=== PATIENT | female | born 1995 | race Caucasian/White ===

== ENCOUNTER → 2021-12-13 | Outpatient (CLI) | payer OTHER, SELFPAY ==
[2021-12-13 14:28] LABS: Progesterone Level 10.96 ng/mL (See Comment)
== END | disposition home or self-care (01) ==
LOC: WOBLAB 13:15
PROVIDERS: Visit Provider Student in an Organized Health Care Education/Training Program
DX: N97.8 Female infertility of other origin (principal)
CPT/HCPCS: 36415; 84144

== ENCOUNTER → 2022-01-13 | Outpatient (CLI) | payer OTHER, SELFPAY ==
[2022-01-13 13:52] LABS: Progesterone Level < 0.21 ng/mL (See Comment)
== END | disposition home or self-care (01) ==
LOC: WOBLAB 10:58
PROVIDERS: Visit Provider Student in an Organized Health Care Education/Training Program
DX: N97.8 Female infertility of other origin (principal)
CPT/HCPCS: 36415; 84144

== ENCOUNTER → 2022-02-17 | Outpatient (CLI) | payer OTHER, SELFPAY ==
[2022-02-17 11:20] LABS: Progesterone Level 13.94 ng/mL (See Comment)
== END | disposition home or self-care (01) ==
PROVIDERS: Visit Provider Student in an Organized Health Care Education/Training Program
DX: N97.8 Female infertility of other origin (principal)
CPT/HCPCS: 36415; 84144

== ENCOUNTER → 2022-03-26 | Outpatient (CLI) | payer OTHER, SELFPAY ==
[2022-03-26 15:25] LABS: Absolute Lymphocyte Count 1.39 X10^3/uL (0.83-4.51); Absolute Neutrophil Count 7.5 X10^3/uL (2.0-7.7); Basophil# 0.06 X10^3/uL; Basophil% 0.6 % (0-1); Eosinophil# 0.16 X10^3/uL; Eosinophils% 1.6 % (0-5); Hematocrit 39.2 % (37-47); Hemoglobin 13.4 g/dL (12.0-15.0); Lymphocyte # 1.39 X10^3/ul (0.83-4.51); Lymphocyte % 14.2 % (19-41); Mean Corp Hgb Conc 34.2 g/dL (32-36); Mean Corpuscular Hgb 29.3 pg (27.0-32.0); Mean Corpuscular Volume 85.8 fL (81-99); Mean Platelet Vol. 10.8 fl (6.2-12.0); Monocyte# 0.66 X10^3/uL; Monocyte% 6.7 % (0-10); NRBC Flagged by Analyzer 0 % (0-5); Neutrophil # 7.49 X10^3/uL (2.7-7.7); Neutrophil % 76.7 % (47-70); Platelet Count 327 K/mm3 (150-450); RBC Distribution Width CV 12.2 % (11.6-14.6); RBC Distribution Width SD 38.3 fl (35.1-43.9); Red Blood Count 4.57 M/mm3 (4.2-5.4); White Blood Count 9.8 K/mm3 (4.4-11.0)
[2022-03-26 16:29] LABS: HIV - WCH Non-Reactive (Nonreactive); Hepatitis B Surface Antigen Non-Reactive (Nonreactive); Hepatitis C Antibody Non-Reactive (Nonreactive); Rubella IgG Reactive (Nonreactive); Syphilis Antibodies Non-reactive
[2022-03-28 13:05] LABS: V-Zoster IgG (Immunity) 483 index (Immune >165)
== END | disposition home or self-care (01) ==
LOC: WOBLAB 14:07
PROVIDERS: Visit Provider Obstetrics & Gynecology
DX: Z34.81 Encounter for supervision of other normal pregnancy, first trimester (principal)
CPT/HCPCS: 36415; 85025; 86703; 86762; 86780; 86787; 86803; 87086; 87088; 87340

== ENCOUNTER → 2022-07-23 | Outpatient (CLI) | payer OTHER, SELFPAY ==
[2022-07-23 11:22] LABS: Hematocrit 36.1 % (37-47); Hemoglobin 12.3 g/dL (12.0-15.0); Mean Corp Hgb Conc 34.1 g/dL (32-36); Mean Corpuscular Hgb 29.8 pg (27.0-32.0); Mean Corpuscular Volume 87.4 fL (81-99); Mean Platelet Vol. 10.1 fl (6.2-12.0); Platelet Count 283 K/mm3 (150-450); RBC Distribution Width CV 13.1 % (11.6-14.6); RBC Distribution Width SD 41.1 fl (35.1-43.9); Red Blood Count 4.13 M/mm3 (4.2-5.4); White Blood Count 10.5 K/mm3 (4.4-11.0)
[2022-07-23 11:28] LABS: Glucose Challenge Gest 1H 50g 133 mg/dL (70-140)
[2022-07-23 11:50] LABS: Syphilis Antibodies Non-reactive
== END | disposition home or self-care (01) ==
LOC: WOBLAB 10:17
PROVIDERS: Visit Provider Nurse Practitioner Women's Health
DX: Z34.82 Encounter for supervision of other normal pregnancy, second trimester (principal)
CPT/HCPCS: 36415; 82950; 85027; 86780

== ENCOUNTER → 2022-10-08 | Outpatient (CLI) | payer OTHER, SELFPAY ==
[2022-10-08 11:10] LABS: Hematocrit 35.6 % (37-47); Hemoglobin 12.1 g/dL (12.0-15.0); Mean Corpuscular Hgb 28.5 pg (27.0-32.0); Mean Platelet Vol. 10.3 fl (6.2-12.0); Platelet Count 289 K/mm3 (150-450); RBC Distribution Width CV 12.6 % (11.6-14.6); RBC Distribution Width SD 37.8 fl (35.1-43.9); Red Blood Count 4.24 M/mm3 (4.2-5.4); White Blood Count 10.5 K/mm3 (4.4-11.0)
== END | disposition home or self-care (01) ==
LOC: WOBLAB 10:16
PROVIDERS: Visit Provider Obstetrics & Gynecology
DX: Z34.83 Encounter for supervision of other normal pregnancy, third trimester (principal); Z36.85 Encounter for antenatal screening for Streptococcus B
CPT/HCPCS: 36415; 85027; 87081

== ENCOUNTER 2022-11-05 17:52 | Inpatient (IN) | payer OTHER, SELFPAY ==
[2022-11-05] VITALS (43 sets, daily range): BP systolic 82–154; BP diastolic 42–78; PULSE 67–99; TEMP 36.4–36.7; O2SAT 96–100; BMI 34.9
--- NOTE | 2022-11-05 18:01 | PCM.HP.BLA ---
History and Physical Date of Admission: 11/05/22 HPI: 27-year-old G1, P0 at 40/2 weeks, VALE 11/03/2022 by LMP consistent with 8-week ultrasound, admitted in labor. Patient reports regular contractions. Denies leaking of fluid, vaginal bleeding. Reports movement. Denies headache or vision changes, chest pain or shortness of breath, nausea or vomiting, diarrhea constipation, fevers or chills. complicated by: Class II obesity, letrozole [employer] history: G1: Current Medical history: 1. Class II obesity Surgical history: 1. [place] tooth extraction Medications: 1. vitamin Social history: Denies tobacco, alcohol, drug use Family history: Denies history of blood clots or bleeding disorders, otherwise noncontributory Review of system: Negative otherwise stated above Physical exam Vital signs:Blood pressure 128/68, heart rate 73, temp 98.1 ?F General: No acute distress, uncomfortable with contractions HEENT: Normocephalic/atraumatic, PERRLA Cardiorespiratory: No increased effort, regular heart rate Abdomen: Soft, nontender, gravid Extremities: Minimal edema Neurologic: No focal deficits, cranial nerves II through XII grossly intact Musculoskeletal: Moves all extremities equally Cervical exam: Per RN cervical change from 3-4?5 cm, membranes palpated heart rate:145/mod sydnee/+accel/ no decel [place]: q4-5 min Assessment/plan:27-year-old G1, P0 at 40/2 weeks, VALE 11/03/2022 by LMP consistent with 8-week ultrasound, admitted in labor. complicated by: Class II obesity, letrozole . ?Admit for labor ? GBS negative ? Routine orders
[2022-11-05 18:25] LABS: Absolute Neutrophil Count 13.8 X10^3/uL (2.0-7.7); Basophil# 0.05 X10^3/uL; Basophil% 0.3 % (0-1); Eosinophil# 0.03 X10^3/uL; Eosinophils% 0.2 % (0-5); Hematocrit 36.7 % (37-47); Hemoglobin 12.5 g/dL (12.0-15.0); Mean Corp Hgb Conc 34.1 g/dL (32-36); Mean Corpuscular Hgb 27.7 pg (27.0-32.0); Mean Corpuscular Volume 81.4 fL (81-99); Mean Platelet Vol. 10.6 fl (6.2-12.0); Monocyte# 0.65 X10^3/uL; Monocyte% 4.1 % (0-10); NRBC Flagged by Analyzer 0 % (0-5); Neutrophil # 13.84 X10^3/uL (2.7-7.7); Platelet Count 314 K/mm3 (150-450); RBC Distribution Width SD 38.4 fl (35.1-43.9); Red Blood Count 4.51 M/mm3 (4.2-5.4); White Blood Count 15.7 K/mm3 (4.4-11.0)
[2022-11-05 18:57] LABS: Syphilis Antibodies Non-reactive
[2022-11-05] MEDS: 0.9% Saline Lock 10 ML Syringe IV (20:03)
[2022-11-05] MEDS: Ondansetron 4 MG/2 ML Vial IV (20:04)
[2022-11-05] MEDS: LACTATED RINGERS 500 ML 999 ML IV ×2 (21:15→23:07)
[2022-11-05] MEDS: Lactated Ringers 1,000 ML 200 ML IV (21:45)
[2022-11-05] MEDS: fentaNYL-bupivacaine (epidural) 100 ML BAG EPIDURAL (22:44)
[2022-11-06] VITALS (50 sets, daily range): BP systolic 83–137; BP diastolic 44–72; PULSE 64–171; RESP 14–16; TEMP 36.3–37.4; O2SAT 81–100
[2022-11-06] MEDS: LACTATED RINGERS 500 ML 999 ML IV ×2 (00:57→08:11)
[2022-11-06] MEDS: Lactated Ringers 1,000 ML 200 ML IV ×2 (03:49→09:07)
[2022-11-06] MEDS: fentaNYL-bupivacaine (epidural) 100 ML BAG EPIDURAL ×3 (04:57→12:15)
[2022-11-06] MEDS: Acetaminophen 500 MG Tablet PO (06:00)
--- NOTE | 2022-11-06 07:41 | PN.OBGYN_ITS ---
Subjective Subjective Patient comfortable with epidural Objective Data Objective Data Vital Signs: Vital Signs Temp Pulse BP Pulse Ox 99.0 F 99 112/61 100 11/06/22 07:23 11/06/22 07:23 11/06/22 07:23 11/06/22 07:23 Weight: 230 lb Body Mass Index (BMI) 34.9 Intake & Output: Intake and Output for Last 24 Hours 11/04/22 11/05/22 11/06/22 23:59 23:59 23:59 Intake Total 1273.33 / 1273.33 1226.67 / 1226.67 Output Total 400 / 400 1080 / 1080 Balance 873.33 / 873.33 146.67 / 146.67 Lab / Micro Data 11/05/22 18:05 Labs: Laboratory Results - last 24 hr 11/05/22 18:05: WBC 15.7 H, RBC 4.51, Hgb 12.5, Hct 36.7 L, MCV 81.4, MCH 27.7, MCHC 34.1, RDW Std Deviation 38.4, RDW Coeff of Kasie 13.0, Plt Count 314, MPV 10.6, Immature Gran % (Auto) 0.400, Neut % (Auto) 88.0 H, Lymph % (Auto) 7.0 L, [place] % (Auto) 4.1, Eos % (Auto) 0.2, Baso % (Auto) 0.3, Absolute Neuts (auto) 13.8 H, Absolute Lymphs (auto) 1.10, Nucleated RBC % 0, Syphilis Total Ab Non- reactive, Blood Type A POSITIVE, Antibody Screen NEGATIVE Physical Exam Const alert, oriented x3, no apparent distress, average body habitus, healthy appearing and well nourished HEENT normocephalic and moist oral mucous membranes Eyes PERRL Neck full ROM Resp normal respiratory effort, no retractions and no use of accessory muscles GI GI Narrative: Soft, nontender, gravid Psych mental status grossly normal, affect normal, speech normal and activity/motor behavior normal Assessment & Plan (1) : PLAN: Called by nursing overnight patient 7 cm dilated. Instructed to continue current management and hold Pitocin at this time. Informed by nursing the patient elected for epidural. Patient seen and examined upon arrival to room SROM for clear fluid. Per nursing cervical exam /0 station. Instructed nursing to continue to labor for complete dilation and to start pushing with complete dilation. Educated patient on SROM and findings discussed care plan with patient and partner and family. All questions answered
[2022-11-06] MEDS: Oxytocin 15 Units/NS 250ml 15 UNITS/250 ML IV.SOLN 83 UNITS IV (13:20)
--- NOTE | 2022-11-06 13:38 | EX.PCM.OBRPT ---
Vaginal Delivery Findings Description of Procedure: Normal spontaneous vaginal delivery of a viable male in vertex ROP. Head and shoulders delivered with ease. Cord clamped and cut. Baby handed off to patient. Placenta delivered via cord traction and fundal massage intact. IM and IV Pitocin given per protocol. Second-degree midline perineal laceration noted and repaired in typical fashion. EBL 350 cc Apgars 8/9
[2022-11-06] MEDS: Ibuprofen 600 MG Tablet PO ×2 (15:59→21:51)
[2022-11-06] MEDS: Acetaminophen 500 MG Tablet 1000 MG PO (17:35)
[2022-11-06] MEDS: Benzocaine/Lanolin/Aloe Vera 1 SPRAY EACH TOPICAL (20:04)
[2022-11-07] VITALS (13 sets, daily range): BP systolic 94–121; BP diastolic 50–57; PULSE 57–80; RESP 15–17; TEMP 36.2–36.8; O2SAT 75–98
[2022-11-07] MEDS: Ibuprofen 600 MG Tablet PO ×3 (04:07→16:03)
--- NOTE | 2022-11-07 08:42 | PCM.PN.OB ---
Subjective Subjective Patient doing well. Breast-feeding. Lochia minimal. No issues or concerns. Objective Data Objective Data Vital Signs: Vital Signs Temp Pulse Resp BP Pulse Ox O2 Del Method 97.6 F L 78 17 106/56 L 97 Room Air 11/07/22 08:08 11/07/22 08:13 11/07/22 08:08 11/07/22 08:13 11/07/22 08:10 11/07/22 08:08 Oxygen Delivery Method Room Air Weight: 104.326 kg Body Mass Index (BMI) 34.9 Intake & Output: Intake and Output for Last 24 Hours 11/05/22 11/06/22 11/07/22 23:59 23:59 23:59 Intake Total 1273.33 / 1273.33 2976.67 / 2976.67 Output Total 400 / 400 1430 / 1430 Balance 873.33 / 873.33 1546.67 / 1546.67 Lab / Micro Data Attestation: I reviewed the patient's lab results. 11/05/22 18:05 Physical Exam Const alert, oriented x3 and no apparent distress HEENT normocephalic Head and Scalp: atraumatic Neck full ROM Resp normal respiratory effort Cardio regular rate GI normal to inspection, nondistended, normoactive bowel sounds GI Narrative: Uterus 2 cm below umbilicus Back/Spine normal ROM Extremity normal to inspection Extremity Narrative: Minimal pedal edema Neuro no focal motor deficits and no sensory deficits noted Psych mental status grossly normal and affect normal Assessment & Plan (1) Vaginal delivery: PLAN: day 1 s/p . Doing well. Breast feeding. Home PPD1-2.
--- NOTE | 2022-11-07 08:44 | DCINST_ITS ---
Discharge Instructions Diet Discharge Diet: No restrictions Activity Discharge Activity: Return to Normal Activity and May Shower May resume sexual activity in: 4-6 weeks Weight Bearing Status: Weight bearing as tolerated Lifting Restrictions: No greater than 25 pounds Dressing / Incision Call your doctor if you observe: Fever of 101 or Higher, Change in Color, Inability to urinate, Using more than 1 pad per hour, Shortness of breath, Dizziness, Swelling in the ankles, Chest pain and Calf discomfort Follow Up Care Please Follow Up With: Kwame Saeed MD When: 3 week visit Test Results: Test results from this visit will be discussed in further detail at your follow- up appointment, if applicable. Discharge Plan Admission Admit Date/Time: 11/05/22 17:52 Primary Reason for Your Visit: Vaginal delivery Attending Provider: Kwame Saeed Discharge Orders/Prescriptions Prescriptions: No Action PNV no.[id number] [ Gummies] PO Disposition Disposition (needs filled in before D/C Order can be placed): Home, Self Care
[2022-11-07] MEDS: Caffeine 200 MG Tablet 400 MG PO (09:12)
[2022-11-07] MEDS: Acetaminophen 500 MG Tablet 1000 MG PO (10:31)
== END 2022-11-07 19:15 | disposition home or self-care (01) | DRG 807 ==
LOC: WPOUT 17:57 → WP 17:57
PROVIDERS: Student in an Organized Health Care Education/Training Program; Admitting Provider Obstetrics & Gynecology; Referring Provider Obstetrics & Gynecology; Visit Provider Obstetrics & Gynecology
DX: O70.1 Second degree perineal laceration during delivery (principal); Z37.0 Single live birth; E66.8 Other obesity; O99.214 Obesity complicating childbirth; Z3A.40 40 weeks gestation of pregnancy
CPT/HCPCS: 59025; 59050; 85025; 86780; 86850; 86900; 86901; 99221; J7120; A4216; G0378; J2405

== ENCOUNTER 2022-11-10 13:05 | Outpatient (CLI) | payer OTHER, SELFPAY ==
[2022-11-10] VITALS (17 sets, daily range): BP systolic 114–132; BP diastolic 59–82; PULSE 55–84; TEMP 37.1; O2SAT 83–100
== END 2022-11-10 15:20 | disposition home or self-care (01) ==
LOC: WPOUT 13:10 → WP 13:10
PROVIDERS: Visit Provider Anesthesiology
DX: O89.4 Spinal and epidural anesthesia-induced headache during the puerperium (principal)
CPT/HCPCS: 62273; 36415; 99221; G0378

== ENCOUNTER → 2023-10-30 | Outpatient (CLI) | payer OTHER, SELFPAY ==
[2023-10-30 15:09] LABS: Absolute Lymphocyte Count 2.07 X10^3/uL (0.83-4.51); Absolute Neutrophil Count 8.4 X10^3/uL (2.0-7.7); Basophil# 0.07 X10^3/uL; Basophil% 0.6 % (0-1); Eosinophil# 0.14 X10^3/uL; Eosinophils% 1.2 % (0-5); Hematocrit 39.1 % (37-47); Hemoglobin 12.9 g/dL (12.0-15.0); Lymphocyte # 2.07 X10^3/ul (0.83-4.51); Mean Corpuscular Hgb 28.2 pg (27.0-32.0); Mean Corpuscular Volume 85.4 fL (81-99); Monocyte# 0.72 X10^3/uL; Monocyte% 6.3 % (0-10); NRBC Flagged by Analyzer 0 % (0-5); Neutrophil # 8.44 X10^3/uL (2.7-7.7); Neutrophil % 73.6 % (47-70); Platelet Count 350 K/mm3 (150-450); RBC Distribution Width CV 12.7 % (11.6-14.6); RBC Distribution Width SD 39.1 fl (35.1-43.9); Red Blood Count 4.58 M/mm3 (4.2-5.4); White Blood Count 11.5 K/mm3 (4.4-11.0)
[2023-10-30 16:00] LABS: Hemoglobin A1c 5.1 % (3.8-5.6)
[2023-10-30 16:17] LABS: HIV - WCH Non-Reactive (Nonreactive); Hepatitis B Surface Antigen Non-Reactive (Nonreactive); Hepatitis C Antibody Non-Reactive (Nonreactive); Rubella IgG Reactive (Nonreactive); Syphilis Antibodies Non-reactive
[2023-11-02 20:07] LABS: Chlamydia By Nucleic Acid AMP Negative (Negative); Gonococcus By Nucleic Acid AMP Negative (Negative)
== END | disposition home or self-care (01) ==
PROVIDERS: Referring Provider Registered Nurse; Visit Provider Registered Nurse
DX: O99.210 Obesity complicating pregnancy, unspecified trimester (principal); E66.9 Obesity, unspecified; O09.90 Supervision of high risk pregnancy, unspecified, unspecified trimester; Z3A.00 Weeks of gestation of pregnancy not specified
CPT/HCPCS: 36415; 83036; 85025; 86703; 86762; 86780; 86803; 86850; 86900; 86901; 87086; 87340; 87491; 87591

== ENCOUNTER 2024-02-16 08:58 | Outpatient (CLI) | payer OTHER, SELFPAY ==
[2024-02-16] VITALS (7 sets, daily range): PULSE 91–104; O2SAT 95–98; BMI 31.4
--- NOTE | 2024-02-28 06:22 | OB.TRI.PN ---
Progress Notes Date of Service: 02/16/24 Progress Note: Patient presents for triage evaluation secondary to abdominal pain FHT: 150 FHT present no contractions seen Assessment and plan: abdominal pain 22 weeks , not in labor. dc home reassurance given
== END 2024-02-16 10:10 | disposition home or self-care (01) ==
LOC: WPOUT 09:02 → WP 09:04
PROVIDERS: Referring Provider Obstetrics & Gynecology; Visit Provider Obstetrics & Gynecology
DX: O99.891 Other specified diseases and conditions complicating pregnancy (principal); R10.9 Unspecified abdominal pain; Z3A.22 22 weeks gestation of pregnancy
CPT/HCPCS: 59025; 59050; 99221; G0378

== ENCOUNTER 2024-02-16 10:21 | Emergency (ER) | payer OTHER, SELFPAY ==
[2024-02-16 10:21] VITALS: BP 121/58; PULSE 109; PULSE 121; RESP 16; TEMP 36.1; O2SAT 98; BMI 31.7
--- NOTE | 2024-02-16 10:50 | EX.ED.DYSGE1 ---
HPI History of Present Illness Chief Complaint: Abd Pain Detail of Chief Complaint: Upper abdominal pain described now as heartburn with nausea and vomiting Informant: patient Onset/Context/Timing Onset: Today (Early this morning) Context: Gradual Onset Timing: Continuous Quality: Burning sensation Location: Epigastric central chest Current Severity: Mild Maximum Severity: Moderate Worsened by: Possibly swallowing Relieved by: Nothing Associated Symptoms Associated Symptoms: Nausea and vomiting numerous times Narrative Narrative: Patient is a 28-year-old female who had hyperemesis gravidarum prior to 12 weeks with first . First was delivered vaginally. She is seen by the [facility]. [facility] She was told there was no concerns with her . No laboratory testing was done at that time. She denies intolerance to greasy or fried foods. Mother had a cholecystectomy due to cholecystitis. She has no history of peptic ulcers, hiatal hernia or reflux. She has bilious emesis noted. There is no coffee-ground emesis or hematemesis. There is no black or maroon-colored stool. Last bowel movement was yesterday. She was slightly constipated. She denies dysuria, frequency, urgency or hematuria. She states this morning urine output was less than normal. Prior similar symptoms: No Recent Illness/Hospitalization: No PFSH PFSH Medical History Infertility Vaginal delivery Home Medications ?Medication ?Instructions ?Recorded ?Last Taken ?Type PNV no.[id number] 1 tab PO DAILY 11/05/22 Unknown History acetaminophen 500 mg tablet 1,000 mg PO Q6H PRN pain 11/10/22 11/10/22 10:00 History (Acetaminophen Extra Strength) metoclopramide HCl 10 mg tablet 10 mg PO 4X/DAY PRN Headache #20 02/16/24 Unknown Rx tabs Allergy/AdvReac Type Severity Reaction Status Date / Time No Known Allergies Allergy Verified 02/16/24 10:22 Family History Grandmother Cancer, Onset Age: 70 maternal- ovarian Grandfather Colon cancer, Onset Age: 30 maternal Grandfather Cancer, Onset Age: 78 paternal- prostate cancer Sister PCOS (polycystic ovarian syndrome) Surgical History [place] teeth extracted Social History adopted: No household members: spouse and children number of children: 1 current occupational status: employed 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 Back to pre weight. what type of physical activity do you participate in: none hollie/tenriism: Gnosticist seatbelt use: always do you feel safe at home: Yes additional social history: [facility]- [facility] Dept ROS ROS ED Constitutional Constitutional ED: Denies chills, fever(s), subjective or sweats Eyes Eyes: Denies blurry vision or change in vision ENT ENT ED: Reports sore throat and other Details: Sore throat started after the vomiting. ; Denies ear pain or rhinorrhea Cardiovascular Cardiovascular: Denies chest pain, orthopnea, palpitations, paroxysmal nocturnal dyspnea or racing heartbeat Respiratory/Chest Respiratory/Chest: Denies cough, dyspnea, dyspnea on exertion, orthopnea or paroxysmal nocturnal dyspnea Gastrointestinal Gastrointestinal: Reports abdominal pain, nausea and vomiting; Denies constipation, diarrhea or melena Genitourinary Genitourinary ED: Reports LMP (females 10-50) Details: Comment: (23 weeks gestation.); Denies dysuria, hematuria or urinary frequency Musculoskeletal Musculoskeletal: Denies arthralgias or myalgias Integumentary Denies rash Neurologic Neurologic: Denies paresthesias or weakness Hematologic/Lymphatic Hematologic/Lymphatic: Reports systems reviewed and no addt'l complaints, except as documented EXAM Physical Exam Const Vital Signs: 02/16/24 10:21 02/16/24 10:21 02/16/24 11:53 Temperature 97 F L Temperature Source Temporal Pulse Rate 121 H 109 H Pulse Rate [Lying] 100 Pulse Rate [Sitting (for 1 minute prior to obtaining)] 102 H Pulse Rate [Standing (for 1 minute prior to obtaining)] 122 H Respiratory Rate 16 Blood Pressure 121/58 H Blood Pressure [Lying] 121/65 H Blood Pressure [Sitting (for 1 minute prior to obtaining)] 126/69 H Blood Pressure [Standing (for 1 minute prior to obtaining)] 114/62 Blood Pressure Mean 79 Blood Pressure Mean [Lying] 83 Blood Pressure Mean [Sitting (for 1 minute prior to obtaining)] 88 Blood Pressure Mean [Standing (for 1 minute prior to obtaining)] 79 Pulse Ox 98 Oxygen Delivery Method Room Air 02/16/24 12:19 02/16/24 14:02 02/16/24 15:33 Temperature 98.1 F Temperature Source Pulse Rate 92 117 H 85 Pulse Rate [Lying] Pulse Rate [Sitting (for 1 minute prior to obtaining)] Pulse Rate [Standing (for 1 minute prior to obtaining)] Respiratory Rate 19 H 16 18 Blood Pressure 127/70 H 122/57 H 120/63 Blood Pressure [Lying] Blood Pressure [Sitting (for 1 minute prior to obtaining)] Blood Pressure [Standing (for 1 minute prior to obtaining)] Blood Pressure Mean 89 78 82 Blood Pressure Mean [Lying] Blood Pressure Mean [Sitting (for 1 minute prior to obtaining)] Blood Pressure Mean [Standing (for 1 minute prior to obtaining)] Pulse Ox 96 99 99 Oxygen Delivery Method Room Air Room Air Positive well nourished and well developed Constitutional Narrative: Patient appears ill but not toxic. BMI is 31.8. General Appearance ED: well developed and pallor HEENT Reports dry mucous membranes HEENT Narrative: Head is atraumatic normocephalic. Ears normal. Nares patent. Posterior pharynx is normal. Mouth ED: Yes dry mucous membranes Mouth: dry mucous membranes Eyes PERRL and EOMs intact bilaterally General Eye ED: Negative for pale conjunctiva or scleral icterus Neck no lymphadenopathy and no JVD Resp normal respiratory effort and clear to auscultation bilaterally Cardio regular rhythm, S1 normal heart sound, S2 normal heart sound and no murmurs Rate: tachycardic GI normal to inspection, nondistended, normoactive bowel sounds, non-distended and no masses; Negative for non-tender or hepatosplenomegaly GI Narrative: Patient has epigastric pain. There is no tenderness in the right upper quadrant and a negative clinical Prasad sign. Palpation: soft Back/Spine no CVA tenderness Extremity normal to inspection General Extremety ED: Negative for edema or tenderness General Extremity: Negative for edema Neuro oriented x3, CN's II-XII intact bilaterally and no sensory deficits noted Sensorium / Orientation: alert Motor Exam: strength 5/5 throughout Psych mental status grossly normal Skin no rashes or lesions noted, no wounds and skin turgor normal General Skin Exam: elasticity normal and pallor; Negative for jaundice MDM MDM MDM Narrative Medical decision making narrative: Differential diagnosis would include GERD, peptic ulcer disease with regards to her heartburn. Also need to include hyperemesis gravidarum, viral illness. Will obtain comprehensive metabolic panel to assess liver enzymes as well as electrolytes. Electrolytes to assess CO2 anion gap as well as renal function. Lipase to evaluate for inflammation of the pancreas. Suspect this is either due to hyperemesis gravidarum or viral infection. Indigestion is probably due to the frequent vomiting causing esophagitis in all likelihood. 1 L of normal saline was ordered. Patient is tachycardic and would support the fact that clinically she is dehydrated. History & Record Review Additional record(s) reviewed:: Prior outpatient record (Outpatient OB visit authored by Donna Mason. Supervision of high risk in second trimester, obesity affecting in second trimester. She was 21 weeks when the note was authored.) Lab Data Attestation: I reviewed the patient's lab results. Lab results narrative: White count is elevated which may be due to and the fact that she has nausea and vomiting. There is no bandemia. There is a slight shift. Electrolyte panel is remarkable for a CO2 of 19 with a normal anion gap. This most likely is due to dehydration. BUN and creatinine are 11 and 0.44 with a estimated BUN to creatinine ratio of 25:1. Urinalysis unremarkable ketones leukoesterase and protein. This is a contaminated specimen with 5-10 epithelial cells. Labs: Laboratory Results - last 24 hr 02/16/24 02/16/24 11:21 11:40 WBC 15.8 H RBC 4.36 Hgb 12.8 Hct 37.4 MCV 85.8 MCH 29.4 MCHC 34.2 RDW Std Deviation 40.4 RDW Coeff of Kasie 13.0 Plt Count 248 MPV 9.8 Immature Gran % (Auto) 0.400 Neut % (Auto) 94.7 H Lymph % (Auto) 2.1 L [place] % (Auto) 2.3 Eos % (Auto) 0.1 Baso % (Auto) 0.4 Absolute Neuts (auto) 14.9 H Absolute Lymphs (auto) 0.33 L Nucleated RBC % 0 Sodium 138 Potassium 3.7 Chloride 113 H Carbon Dioxide 19.0 L Anion Gap 6 BUN 11 Creatinine 0.44 L Estim Creat Clear Calc 231.21 Est GFR (MDRD) Af Amer 220 Est GFR (MDRD) Non-Af 182 BUN/Creatinine Ratio 25.1 H Glucose 102 Calcium 8.4 L Total Bilirubin 0.30 AST 8 L ALT 11 L Alkaline Phosphatase 83 Total Protein 6.6 Albumin 2.9 L Globulin 3.7 Albumin/Globulin Ratio 0.8 L Lipase 22 Urine Color Yellow Urine Clarity Sl. Cloudy Urine pH 6.0 Ur Specific [place] 1.020 Urine Protein 15 H Urine Glucose (UA) Normal Urine Ketones 150 A* Urine Occult Blood Negative Urine Nitrite Negative Urine Bilirubin Negative Urine Urobilinogen Normal Ur Leukocyte Esterase 25 H Urine RBC 0 SEEN Urine WBC 0-5 SEEN Ur Squamous Epith Cells 5-10 SEEN Urine Bacteria 2+ Urine Mucus 1+ Treatment and Re-Evaluation :: Patient was reassessed at 03/10/2003. She still complains of nausea. Will treat with Reglan. 1 L normal saline was ordered as well. Patient was reassessed at 1347. Her nausea has improved markedly. P.o. challenge was ordered. Patient has no urge to urinate after 1 L of normal saline. Second liter of normal saline was ordered. Patient was reassessed at 1522. She is sitting up smiling. She is eating Anastacia dunes. Will discharge with prescription for Reglan. Her heart rate is improved from 1 21-92. Discharge Plan Triage Chief Complaint: Abd Pain ED Provider: Reynold Foster Dx/Rx/DC Orders Clinical Impression: Nausea & vomiting, Obesity affecting , Heartburn during , Acute dehydration, Sinus tachycardia seen on quality assurance monitor, Ketosis, Second trimester Instructions: ED Vomiting (Adult) Prescriptions: New metoclopramide HCl 10 mg tablet 10 mg PO 4X/DAY PRN (Reason: Headache) Qty: 20 0RF No Action PNV no.[id number] [ Gummies] 1 tab PO DAILY acetaminophen [Acetaminophen Extra Strength] 500 mg tablet 1,000 mg PO Q6H PRN (Reason: pain) Primary Care Provider: Care Physician,No Primary Referrals: Malina Castillo MD [Med Staff - Active Staff] - 3-5 Days if not improving Care Physician,No Primary [Primary Care Provider] - Print Language: Telugu Disposition Disposition: Home, Self Care Discharge Date/Time: 02/16/24 15:34
[2024-02-16 11:28] LABS: Absolute Lymphocyte Count 0.33 X10^3/uL (0.83-4.51); Absolute Neutrophil Count 14.9 X10^3/uL (2.0-7.7); Basophil# 0.06 X10^3/uL; Basophil% 0.4 % (0-1); Eosinophil# 0.01 X10^3/uL; Eosinophils% 0.1 % (0-5); Hematocrit 37.4 % (37-47); Hemoglobin 12.8 g/dL (12.0-15.0); Lymphocyte # 0.33 X10^3/ul (0.83-4.51); Lymphocyte % 2.1 % (19-41); Mean Corp Hgb Conc 34.2 g/dL (32-36); Mean Corpuscular Hgb 29.4 pg (27.0-32.0); Mean Corpuscular Volume 85.8 fL (81-99); Mean Platelet Vol. 9.8 fl (6.2-12.0); Monocyte# 0.37 X10^3/uL; Monocyte% 2.3 % (0-10); NRBC Flagged by Analyzer 0 % (0-5); Neutrophil # 14.94 X10^3/uL (2.7-7.7); Neutrophil % 94.7 % (47-70); POSITIVE DIFFERENTIAL YES; Platelet Count 248 K/mm3 (150-450); RBC Distribution Width SD 40.4 fl (35.1-43.9); Red Blood Count 4.36 M/mm3 (4.2-5.4); White Blood Count 15.8 K/mm3 (4.4-11.0)
[2024-02-16 11:46] LABS: ALB/GLOB Ratio 0.8 RATIO (0.9-2.4); AST(SGOT) 8 U/L (15-37); Alanine Aminotransfer ALT/SGPT 11 U/L (13-56); Albumin, Serum 2.9 g/dL (3.2-5.0); Alkaline Phosphatase 83 U/L (45-117); Anion Gap 6 (5-15); BUN 11 mg/dL (7-18); BUN/Creat Ratio 25.1 RATIO (10-20); Calcium,Total 8.4 mg/dL (8.5-10.1); Chloride 113 mmol/L (98-107); Creatinine, Serum 0.44 mg/dL (0.55-1.02); EST Glomerular Filtration Rate 182 mL/min (>60); Est Glom Filt Rate - Afr Amer 220 mL/min (>60); Estimated Creatinine Clearance 231.21 ml/min; Globulin 3.7 g/dL (2.2-4.2); Glucose 102 mg/dL (74-106); Lipase 22 U/L (13-75); Potassium 3.7 mmol/L (3.5-5.1); Protein, Total 6.6 g/dL (6.4-8.2); Sodium Level 138 mmol/L (136-145)
[2024-02-16 11:47] LABS: Red Blood Cells-Urine 0 SEEN /hpf (0-5)
[2024-02-16 11:49] LABS: Color, Urine Yellow (Yellow); Glucose, Dipstick Normal (Normal); Leukocyte Esterase-Dipstick 25 /ul (Negative); Nitrite-Dipstick Negative (Negative); Occult Blood-Urine Negative /ul (Negative); Protein-Dipstick 15 mg/dl (Negative); Urine Bilirubin Dipstick Negative (Negative); Urine Clarity Sl. Cloudy (Clear); Urine Urobilinogen Normal (Normal)
[2024-02-16 11:50] LABS: Ketone-Dipstick 150 mg/dl (Negative)
[2024-02-16 11:53] VITALS: BP 114/62; BP 121/65; BP 126/69; PULSE 100; PULSE 102; PULSE 122
[2024-02-16 12:04] LABS: Bacteria 2+ /hpf (None Seen); Mucous, Urine 1+ /hpf (<or=2+); Squamous Epithelial Cells - UA 5-10 SEEN /hpf (5-10); White Blood Cells 0-5 SEEN /hpf (0-5)
[2024-02-16] MEDS: Metoclopramide 10 MG/2 ML Vial 5 MG IV (12:18)
[2024-02-16] MEDS: 0.9% Normal Saline (1000mL) 1,000 ML 1000 ML IV ×2 (12:18→14:03)
[2024-02-16 12:19] VITALS: BP 127/70; PULSE 92; RESP 19; O2SAT 96
[2024-02-16 14:02] VITALS: BP 122/57; PULSE 117; RESP 16; O2SAT 99
[2024-02-16 15:33] VITALS: BP 120/63; PULSE 85; RESP 18; TEMP 36.7; O2SAT 99
== END 2024-02-16 15:34 | disposition home or self-care (01) ==
PROVIDERS: Emergency Provider Emergency Medicine; Visit Provider Emergency Medicine
DX: O26.892 Other specified pregnancy related conditions, second trimester (principal); E88.89 Other specified metabolic disorders; R00.0 Tachycardia, unspecified; O99.282 Endocrine, nutritional and metabolic diseases complicating pregnancy, second trimester; R10.10 Upper abdominal pain, unspecified; O99.212 Obesity complicating pregnancy, second trimester; O21.9 Vomiting of pregnancy, unspecified; O99.891 Other specified diseases and conditions complicating pregnancy; R12 Heartburn; E86.0 Dehydration; Z90.49 Acquired absence of other specified parts of digestive tract; Z3A.00 Weeks of gestation of pregnancy not specified
CPT/HCPCS: 80053; 81001; 83690; 85025; 96361; 96374; 99285; A4216

== ENCOUNTER → 2024-03-23 | Outpatient (CLI) | payer OTHER, SELFPAY ==
[2024-03-23 10:54] LABS: Absolute Lymphocyte Count 1.41 X10^3/uL (0.83-4.51); Absolute Neutrophil Count 8.7 X10^3/uL (2.0-7.7); Basophil# 0.04 X10^3/uL; Basophil% 0.4 % (0-1); Eosinophil# 0.14 X10^3/uL; Eosinophils% 1.3 % (0-5); Hematocrit 35.5 % (37-47); Hemoglobin 11.7 g/dL (12.0-15.0); Lymphocyte # 1.41 X10^3/ul (0.83-4.51); Lymphocyte % 13.1 % (19-41); Mean Corpuscular Hgb 28.3 pg (27.0-32.0); Monocyte# 0.45 X10^3/uL; Monocyte% 4.2 % (0-10); NRBC Flagged by Analyzer 0 % (0-5); Neutrophil % 80.6 % (47-70); Platelet Count 279 K/mm3 (150-450); RBC Distribution Width SD 40.3 fl (35.1-43.9); Red Blood Count 4.13 M/mm3 (4.2-5.4); White Blood Count 10.8 K/mm3 (4.4-11.0)
[2024-03-23 10:57] LABS: Glucose Challenge Gest 1H 50g 134 mg/dL (70-140)
[2024-03-23 11:33] LABS: HIV - WCH Non-Reactive (Nonreactive); Syphilis Antibodies Non-reactive
== END | disposition home or self-care (01) ==
LOC: BWCLAB 10:06
PROVIDERS: Referring Provider Obstetrics & Gynecology; Visit Provider Obstetrics & Gynecology
DX: O09.92 Supervision of high risk pregnancy, unspecified, second trimester (principal); Z3A.00 Weeks of gestation of pregnancy not specified; Z13.1 Encounter for screening for diabetes mellitus
CPT/HCPCS: 36415; 82950; 85025; 86703; 86780

== ENCOUNTER → 2024-04-20 | Outpatient (CLI) | payer OTHER, SELFPAY ==
[2024-04-20 11:36] LABS: Absolute Lymphocyte Count 1.37 X10^3/uL (0.83-4.51); Absolute Neutrophil Count 8.7 X10^3/uL (2.0-7.7); Basophil# 0.03 X10^3/uL; Basophil% 0.3 % (0-1); Eosinophil# 0.09 X10^3/uL; Eosinophils% 0.8 % (0-5); Hematocrit 35.8 % (37-47); Hemoglobin 12.2 g/dL (12.0-15.0); Lymphocyte # 1.37 X10^3/ul (0.83-4.51); Lymphocyte % 12.9 % (19-41); Mean Corp Hgb Conc 34.1 g/dL (32-36); Mean Corpuscular Hgb 28.6 pg (27.0-32.0); Mean Corpuscular Volume 83.8 fL (81-99); Monocyte# 0.38 X10^3/uL; Monocyte% 3.6 % (0-10); NRBC Flagged by Analyzer 0 % (0-5); Neutrophil # 8.74 X10^3/uL (2.7-7.7); Platelet Count 287 K/mm3 (150-450); RBC Distribution Width CV 12.6 % (11.6-14.6); RBC Distribution Width SD 37.9 fl (35.1-43.9); Red Blood Count 4.27 M/mm3 (4.2-5.4); White Blood Count 10.7 K/mm3 (4.4-11.0)
[2024-04-20 11:55] LABS: ALB/GLOB Ratio 0.7 RATIO (0.9-2.4); AST(SGOT) 9 U/L (15-37); Alanine Aminotransfer ALT/SGPT 11 U/L (13-56); Albumin, Serum 2.8 g/dL (3.2-5.0); Alkaline Phosphatase 112 U/L (45-117); Anion Gap 9 (5-15); BUN 7 mg/dL (7-18); BUN/Creat Ratio 12.1 RATIO (10-20); Calcium,Total 9.1 mg/dL (8.5-10.1); Chloride 107 mmol/L (98-107); Creatinine, Serum 0.58 mg/dL (0.55-1.02); EST Glomerular Filtration Rate 132 mL/min (>60); Est Glom Filt Rate - Afr Amer 160 mL/min (>60); Globulin 4.1 g/dL (2.2-4.2); Glucose 136 mg/dL (74-106); Potassium 3.6 mmol/L (3.5-5.1); Protein, Total 6.9 g/dL (6.4-8.2); Sodium Level 138 mmol/L (136-145)
== END | disposition home or self-care (01) ==
PROVIDERS: Referring Provider Obstetrics & Gynecology; Visit Provider Obstetrics & Gynecology
DX: O99.719 Diseases of the skin and subcutaneous tissue complicating pregnancy, unspecified trimester (principal); L29.9 Pruritus, unspecified; Z3A.00 Weeks of gestation of pregnancy not specified
CPT/HCPCS: 36415; 80053; 85025

== ENCOUNTER → 2024-05-18 | Outpatient (CLI) | payer OTHER, SELFPAY | END | disposition home or self-care (01) | LOC: LABSPEC 11:03 | PROVIDERS: Referring Provider Nurse Practitioner Women's Health; Visit Provider Nurse Practitioner Women's Health | DX: O09.90 Supervision of high risk pregnancy, unspecified, unspecified trimester (principal); Z3A.36 36 weeks gestation of pregnancy | CPT/HCPCS: 87081 ==

== ENCOUNTER 2024-06-07 00:34 | Inpatient (IN) | payer OTHER, SELFPAY ==
[2024-06-07] VITALS (37 sets, daily range): BP systolic 98–121; BP diastolic 50–71; PULSE 73–105; RESP 16; TEMP 36.1–37.1; O2SAT 97–100; BMI 34.7
[2024-06-07] MEDS: Oxytocin 15 Units/NS 250ml 15 UNITS/250 ML IV.SOLN 334 UNITS IV (00:05)
[2024-06-07] MEDS: Lidocaine 1% (20 ml mdv) 20 ML Vial INFILT (00:10)
[2024-06-07] MEDS: Oxytocin 10 UNITS/ML Vial IM (00:19)
--- NOTE | 2024-06-07 00:25 | HP.PCM.OB_ITS ---
HPI - General General Date of Admission: 06/06/24 Date of Service: 06/07/24 HPI Narrative NIKKY MCGRATH, is a 29 F 39.0 weeks who presents to unit via squad at 10 cm and ruptured at 2350 for clear fluid. Maternal Data Information VALE Calculator Estimated Delivery Date Method Current WG Current Estimate 06/13/24 Ultrasound #1 39w 1d Other Estimates 06/07/24 LMP (Certain) 40w 0d Final VALE: 06/13/24 Final VALE Source: US >20 weeks Gestational age: 39.0 PFSH PFSH Medical History Infertility Vaginal delivery Home Medications ?Medication ?Instructions ?Recorded ?Last Taken ?Type PNV no.[id number] 1 tab PO DAILY 11/05/22 Unknown History acetaminophen 500 mg tablet 1,000 mg PO Q6H PRN pain 0 11/10/22 11/10/22 10:00 History (Acetaminophen Extra Strength) metoclopramide HCl 10 mg tablet 10 mg PO 4X/DAY PRN He adache #20 02/16/24 Unknown Rx tabs Allergy/AdvReac Type Severity Reaction Status Date / Time No Known Allergies Allergy Verified 06/06/24 15:47 Family History Grandmother Cancer, Onset Age: 70 maternal- ovarian Grandfather Colon cancer, Onset Age: 30 maternal Grandfather Cancer, Onset Age: 78 paternal- prostate cancer Sister PCOS (polycystic ovarian syndrome) Surgical History [place] teeth extracted Social History adopted: No household members: spouse and children number of children: 1 current occupational status: employed 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 Back to pre weight. what type of physical activity do you participate in: none hollie/orthodox: Evangelical seatbelt use: always do you feel safe at home: Yes additional social history: Franchesca- [facility] History 2 Elective abortions Hx Para 1 Spontaneous abortions Hx # Term Pregnancies Ectopic pregnancies Hx # Pregnancies Multiple births # of living children 1 Past Pregnancies Del. Date Name GA/Weeks Outcome Route Bth Weight Infant Gen Labor Lgth Anesthesia Del Locatn Provider FOB 11/06/22 Daniel 40 live - full term 8#2oz Male epidur al [facility] Kwame Salix Franchesca Delivery Date: 11/06/22 Last Updated by: Danielle Luong Cephalic Occiput Posterior delivery, vaginal tear Visit Details Expected Delivery Route/Plan Labor Preferences- CB/BF classes: no labor support person: franchesca labor intervention preferences: [] pain management options preferred: epidural cut cord/dad catch: cord : yes PP control planned: discussed discussed possible routes of delivery and associated risks: [] special requests: [] Plans Covid status: [] Flu vaccine: given Tdap vaccine: declines Rhogam: NA LARC form signed: yes Problem list reviewed and updated with the most current plan of care details and appropriate orders placed. Relevant counseling for the gestational age provided. Continue routine care and follow up unless otherwise noted in visit notes/problem list details OB Flowsheet Initial Weight: 209 lb Date -?-?-?-?-?-?-?-?-?-?-?-?- EGA Weight BP Urine Prot -?-?-?-?-?-?-?-?-?-?-?-?- Glucose FHR FuHt Pres Dilation -?-?-?-?-?-?-?-?-?-?-?-?- Effaced St Visit Note 10/30/23 -?-?-?-?-?-?-?-?-?-?-?-?- 7w 4d 209 lb 8 oz (+8 oz) 105/69 -?-?-?-?-?-?-?-?-?-?-?-?- 156 -?-?-?-?-?-?-?-?-?-?-?-?- LC- CRL 1.3 7w4d . VALE changed to 06/13/24.declines genetic screenings. 12/02/23 -?-?-?-?-?-?-?-?-?-?-?-?- 12w 2d 206 lb (-3 lb) 114/73 Negative -?-?-?-?-?-?-?-?-?-?-?-?- Negative 150 -?-?-?-?-?-?-?-?-?-?-?-?- SM- no vb crampi ng 12/28/23 -?-?-?-?-?-?-?-?-?-?-?-?- 16w 0d 208 lb 2 oz (-14 oz) 120/68 Negative -?-?-?-?-?-?-?-?-?-?-?-?- Negative 152 -?-?-?-?-?-?-?-?-?-?-?-?- MH-No VB. Doing well. Enc to call for MFM anatomy US. Flu vaccine given 01/27/24 -?-?-?-?-?-?-?-?-?-?-?-?- 20w 2d 208 lb (-16 oz) 116/72 Negative -?-?-?-?-?-?-?-?-?-?-?-?- Negative 151 -?-?-?-?-?-?-?-?-?-?-?-?- MH-No Vb. Chris Sanchez Reviewed normal MFM anatomy US 02/26/24 -?-?-?-?-?-?-?-?-?-?-?-?- 24w 4d 212 lb (+3 lb) 113/69 Negative -?-?-?-?-?-?-?-?-?-?-?-?- Negative 150 25 -?-?-?-?-?-?-?-?-?-?-?-?- JV- no lof, vagi nal bleeding, or dec fm. was in ER last week for GI virus. 03/23/24 -?-?-?-?-?-?-?-?-?-?-?-?- 28w 2d 217 lb 4 oz (+8 lb 4 oz) 118/66 Negative -?--?-?-?-?-?-?-?-?-?-?-?- Negative 154 28 -?-?-?-?-?-?-?-?-?-?-?-?- MH-No VB, LOF. G ood FM. 28 wk labs pending. Larc. Tdap declined. Lengthy discussion of past trauma/increased anxiety re:poor healing to 2 degree vag lac. 04/08/24 -?-?-?-?-?-?-?-?-?-?-?-?- 30w 4d 218 lb 8 oz (+9 lb 8 oz) 112/77 Negative -?-?-?-?-?-?-?-?-?-?-?-?- Negative 155 30 -?-?-?-?-?-?-?-?-?-?-?-?- JV- long discuss ion today about tear. was oversewn last delivery. baby was OP. see A/P 04/20/24 -?-?-?-?-?-?-?-?-?-?-?-?- 32w 2d 221 lb 8 oz (+12 lb 8 oz) 113/71 Negative -?-?-?-?-?-?-?-?-?-?-?-?- Negative 140 33 -?-?-?-?-?-?-?-?-?-?-?-?- SM- no vb lof go od fm no regular ctx no regualr ctx co itching. draw labs today, no definite rash. 05/04/24 -?-?-?-?-?-?-?-?-?-?-?-?- 34w 2d 221 lb (+12 lb) 113/69 Negative -?-?-?-?-?-?-?-?-?-?-?-?- Negative 145 34 -?-?-?-?-?-?-?-?-?-?-?-?- SM- no vb lof go od fm no regular ctx 05/18/24 -?-?-?-?-?-?-?-?-?-?-?-?- 36w 2d 224 lb 2 oz (+15 lb 2 oz) 116/68 Negative -?-?-?-?-?-?-?-?-?-?-?-?- Negative 151 36 -?-?-?-?-?-?-?-?-?-?-?-?- MH-No vb, LOF or reg CTX. Declines internal exam. GBS done 05/25/24 -?-?-?-?-?-?-?-?-?-?-?-?- 37w 2d 227 lb (+18 lb) 125/72 Negative -?-?-?-?-?-?-?-?-?-?-?-?- Negative 155 37 Cephalic 3 -?-?-?-?-?-?-?-?-?-?-?-?- 60 -1 Sm- no vb lof good fm no reuglar ctx 06/01/24 -?-?-?-?-?-?-?-?-?-?-?-?- 38w 2d 228 lb (+19 lb) 103/64 Negative -?-?-?-?-?-?-?-?-?-?-?-?- Negative 160 38 Cephalic 3 -?-?-?-?-?-?-?-?-?-?-?-?- 60 -2 JV- no lof , vaginal bleeding, or dec fm. no complaints. labor precautions discussed. 06/06/24 -?-?-?-?-?-?-?-?-?-?-?-?- 39w 0d 228 lb 8 oz (+19 lb 8 oz) 133/73 Negative -?-?-?-?-?-?-?-?-?-?-?-?- Negative 140 39 Cephalic 4 -?-?-?-?-?-?-?-?-?-?-?-?- 70 -1 SM- no vb lof decreased fm no rgular ctx ROS Constitutional Constitutional: Denies change in weight, fatigue, fever(s), headache(s), poor appetite or weakness Eyes Eyes: Denies blurry vision, change in vision, floaters, seeing flashes or spots in vision ENT HEENT: Denies dizziness, headache(s), loss taste/smell or sore throat Cardiovascular Cardiovascular: Denies chest pain, dizziness, dyspnea, irregular heart rhythm, lightheadedness, palpitations or rapid heart rate Respiratory/Chest Respiratory/Chest: Denies change in mental status, chest tightness, cough, dyspnea or breast pain Gastrointestinal Gastrointestinal: Denies anorexia, chewing difficulty, constipation, diarrhea or weight changes Genitourinary Genitourinary: Denies difficulty urinating, dysuria, flank pain, genital pain, urinary frequency or urinary urgency Musculoskeletal Musculoskeletal: Denies back pain, difficulty walking, extremity pain, joint pain, muscle cramps or muscle weakness Integumentary Integumentary: Denies lesions or unusual bruising Neurologic Neurologic: Denies abnormal movements, abnormal speech, dizziness, numbness, seizure-like activity, syncope or weakness Psychiatric Psychiatric: Denies behavioral changes, change in appetite, confusion, depression, homicidal ideation, suicidal ideation or suicidal thoughts Endocrine Endocrinology: Denies excessive sweating, polydipsia or polyuria Hematologic/Lymphatic Hematologic/Lymphatic: Denies anemia Allergic/Immunologic Allergic/Immunologic: Denies itchy eyes, lip swelling, throat swelling, tongue swelling or wheezing Vital Signs Vital Signs Vital Signs: 06/07/24 00:24 06/07/24 00:24 Pulse Rate 102 H Blood Pressure 121/66 H BP Systolic 121 BP Diastolic 66 Physical Exam Const alert, oriented x3 and no apparent distress General Appearance: cooperative Orientation / Consciousness: awake HEENT normocephalic Neck full ROM Lymph Lymphatic: no lymphadenopathy noted Chest inspection of chest normal Resp normal respiratory effort and normal air movement Effort and Inspection: able to speak in complete sentences and symmetric chest movement GI soft to palpation and non-tender Inspection: gravid Palpation: soft; Negative for tender external exam normal Manual OB Exam: dilated 10 and station +1 Back/Spine normal to inspection Extremity normal to inspection and full ROM Skin no rashes or lesions noted Psych mental status grossly normal Appearance: grossly normal Speech: normal speech Labs Labs Labs: Blood Type A POSITIVE Antibody Screen NEGATIVE Hct 35.8 % (37-47) L Hgb 12.2 g/dL (12.0-15.0) Syphilis Total Ab Non-reactive VZV IgG Antibody 483 index (Immune >165) Rubella IgG Antibody Reactive (Nonreactive) Hep Bs Antigen Non-Reactive (Nonreactive) Hepatitis C Antibody Non-Reactive (Nonreactive) Chlamydia DNA (CANDACE) Negative (Negative) N.gonorrhoeae DNA (CANDACE) Negative (Negative) HIV 1&2 Antibody Non-Reactive (Nonreactive) Glucose 1 Hr 50 gm 134 mg/dL (70-140) Rhogam given: No Assessment & Plan (1) Active labor: PLAN: Patient presents IAL, plan expectant management for , pitocin/AROM PRN if needed. Pain management: plans epidural. GBS positive plan IV PCN. Management of any complications: none I have reviewed the [facility] and made any clinically relevant updates. Dr Castillo aware of admission, assessment and plan. agrees with above (2) Precipitate labor, with delivery: (3) Anxiety associated with birthing process: COMMENT: 2 degree tear w/first del. States pain at sight, has always felt tight. Did vaginal stretching. Took 12 wks to be able to sit. Tearful with discussion. Declines medication (4) Obesity affecting : QUALIFIERS: Trimester: second trimester Obesity type affecting : unspecified obesity Qualified Code(s): O99.212 - Obesity complicating , second trimester COMMENT: BMI 31 encouraged healthy weight gain, nl hga1c 1 TM. (5) Supervision of high-risk : QUALIFIERS: Trimester: third trimester Qualified Code(s): O09.93 - Supervision of high risk , unspecified, third trimester COMMENT: PRR , VALE 06/07/24,girl BIRD Sanchez, Franchesca history of 2nd degree tear that was oversewn. wants to try to get this fixed if tears again, wonders if we can leave some eges open if not bleeding. Plan to allow tearing of old scar naturally or if looks like going to tear in a different place, cut epis at old site . (6) : QUALIFIERS: Weeks of gestation: 39 weeks Qualified Code(s): Z3A.39 - 39 weeks gestation of COMMENT: declines genetic & carrier testing Charges/Coding Multi Select Codes Urinary/Genital Urinary/Genital CPT Codes: No Charge
--- NOTE | 2024-06-07 00:29 | OB.VAGDELI_ITS ---
Assessment & Plan (1) Precipitate labor, with delivery: COMMENT: 2 hours (2) Active labor: COMMENT: KW Girl 39.0 (3) Anxiety associated with birthing process: COMMENT: 2 degree tear w/first del. States pain at sight, has always felt tight. Did vaginal stretching. Took 12 wks to be able to sit. Tearful with discussion. Declines medication (4) Obesity affecting : QUALIFIERS: Trimester: second trimester Obesity type affecting : unspecified obesity Qualified Code(s): O99.212 - Obesity complicating , second trimester COMMENT: BMI 31 encouraged healthy weight gain, nl hga1c 1 TM. (5) Supervision of high-risk : QUALIFIERS: Trimester: third trimester Qualified Code(s): O09.93 - Supervision of high risk , unspecified, third trimester COMMENT: PRR , VALE 06/07/24,girl BIRD Sanchez, Marquez history of 2nd degree tear that was oversewn. wants to try to get this fixed if tears again, wonders if we can leave some eges open if not bleeding. Plan to allow tearing of old scar naturally or if looks like going to tear in a different place, cut epis at old site . (6) : QUALIFIERS: Weeks of gestation: 39 weeks Qualified Code(s): Z3A.39 - 39 weeks gestation of COMMENT: declines genetic & carrier testing Maternal Data Information VALE Calculator Estimated Delivery Date Method Current WG Current Estimate 06/13/24 Ultrasound #1 39w 1d Other Estimates 06/07/24 LMP (Certain) 40w 0d Final VALE: 06/13/24 Final VALE Source: US >20 weeks Gestational age: 39.0 Vaginal Delivery Maternal Presentation Maternal Presentation: Active Labor Maternal Presentation: Presented to unit for active labor at term. Vaginal Delivery Information Procedure Performed: Spontaneous Vaginal Delivery Surgeon/Practitioner: Alaina Francois Date of Procedure: 06/06/24 Pre-Procedure Diagnosis: see problem list Post-Procedure Diagnosis: same Type of anesthesia: None Estimated Blood Loss: 150 Time of Delivery: 23:57 Findings Description of procedure: Progressed well to 10cm dilated and made steady progress with effective maternal pushing. Delivered the head in TJ presentation. The head was delivered atraumatically and a loose nuchal cord was identified and was easily reduced over the 's head. The anterior and posterior shoulders delivered without complication followed by the rest of the infant and the was placed on the maternal abdomen. Delayed cord clamping was employed for approximately 3 minutes. Cord was clamped and cut and gentle traction was applied to the cord and the placenta delivered spontaneously. Immediately following, it was noted to be intact with a 3 vessel cord. Uterine bleeding stable. The perineum and vagina were inspected and noted to have a first degree laceration which was repaired with 3-0 Vicryl in the usual fashion. EBL was 150cc. Patient and infant tolerated delivery well. Apgars 8/9. Dr [Anna] [Jocelyn] notified of vaginal delivery and orders reviewed. Physician agrees with current plan of care. Presentation: Vertex Amniotic Membrane Rupture Type: Spontaneous Amniotic Fluid Description: Clear Placental Delivery Description: Spontaneous Placenta Disposition: [facility] Specimen collected: No Cord Vessel Description: 3 Vessels Cord Entanglement: Around neck x 1, loose A Gender: Female (1 minute): 8 (5 minute): 9 Delayed Cord Clamping: Yes Business Solution Analyst global category manager: No Post Vaginal Deli Medications given after delivery: IV Pitocin and IM Pitocin Episiotomy Description: None Laceration: 1st degree Complication Complications: No Multi Select Codes Urinary/Genital Urinary/Genital CPT Codes: 09175 Vaginal Delivery [facility]
--- NOTE | 2024-06-07 00:31 | DCINST_ITS ---
Discharge Instructions Diet Discharge Diet: No restrictions DC O2, CPAP, BIPAP needs Home O2 Discharge instructions: No Dressing / Incision Discharge Activity: Return to Normal Activity May resume sexual activity in: 6-8 weeks Dressing / Incision Call your doctor if you observe: Fever of 101 or Higher, Coldness, Increased Pain, Numbness or Tingling, Change in Color, Inability to urinate, Inability to have a bowel movement, Using more than 1 pad per hour, Shortness of breath, Dizziness, Fainting spells, Swelling in the ankles, Chest pain, Increased p alpitations (irregular heartbeat), Calf discomfort and Uncontrolled pain Follow Up Care Please Follow Up With: Alaina Francois CNM When: Please call the office to schedule your follow up appointment in 6 weeks. If you had high blood pressure please call to schedule an appointment in 2 weeks. Test Results: Test results from this visit will be discussed in further detail at your follow- up appointment, if applicable. Discharge Plan Admission Admit Date/Time: 06/06/24 23:50 Attending Provider: Alaina Francois Primary Care Provider: Care Physician,Ree Primary Discharge Orders/Prescriptions Prescriptions: No Action PNV no.[id number] [ Gummies] 1 tab PO DAILY acetaminophen [Acetaminophen Extra Strength] 500 mg tablet 1,000 mg PO Q6H PRN (Reason: pain) metoclopramide HCl 10 mg tablet 10 mg PO 4X/DAY PRN (Reason: Headache) Qty: 20 0RF Referrals / Follow Up: Care Physician,Ree Primary [Primary Care Provider] -
--- NOTE | 2024-06-07 00:40 | NURSING ---
IV started in squad
[2024-06-07 03:18] LABS: Absolute Lymphocyte Count 1.41 X10^3/uL (0.83-4.51); Absolute Neutrophil Count 21.5 X10^3/uL (2.0-7.7); Basophil# 0.07 X10^3/uL; Basophil% 0.3 % (0-1); Eosinophil# 0.02 X10^3/uL; Eosinophils% 0.1 % (0-5); Hematocrit 35.8 % (37-47); Hemoglobin 12.4 g/dL (12.0-15.0); Lymphocyte # 1.41 X10^3/ul (0.83-4.51); Lymphocyte % 5.9 % (19-41); Mean Corp Hgb Conc 34.6 g/dL (32-36); Mean Corpuscular Hgb 27.7 pg (27.0-32.0); Mean Corpuscular Volume 79.9 fL (81-99); Monocyte# 0.69 X10^3/uL; Monocyte% 2.9 % (0-10); NRBC Flagged by Analyzer 0 % (0-5); Neutrophil # 21.49 X10^3/uL (2.7-7.7); Neutrophil % 90.1 % (47-70); POSITIVE DIFFERENTIAL YES; Platelet Count 303 K/mm3 (150-450); RBC Distribution Width SD 36.7 fl (35.1-43.9); Red Blood Count 4.48 M/mm3 (4.2-5.4); White Blood Count 23.8 K/mm3 (4.4-11.0)
[2024-06-07 03:23] LABS: Differential Indicated SCAN CRITERIA MET
[2024-06-07] MEDS: Ibuprofen 600 MG Tablet PO ×3 (03:35→16:31)
[2024-06-07 04:03] LABS: Differential Comment SCANNED
[2024-06-07] MEDS: Acetaminophen 500 MG Tablet 1000 MG PO ×2 (05:48→21:43)
--- NOTE | 2024-06-07 08:01 | PN.OBGYN_ITS ---
Subjective Subjective Patient doing well without complaints. Tolerating PO. Ambulating and voiding without difficulty. Feeding well. Denies chest pain, shortness of breath, calf pain/swelling, fevers, chills, lightheadedness. Objective Data Objective Data Vital Signs: Vital Signs Temp Pulse Resp BP Pulse Ox O2 Del Method 97.9 F 82 16 107/52 L 98 Room Air 06/07/24 05:44 06/07/24 05:44 06/07/24 05:44 06/07/24 05:44 06/07/24 02:23 06/07/24 05:44 Oxygen Delivery Method Room Air Weight: 228 lb 8 oz Body Mass Index (BMI) 34.7 Intake & Output: Intake and Output for Last 24 Hours 06/05/24 06/06/24 06/07/24 23:59 23:59 23:59 Intake Total 250 / 250 Output Total 150 / 150 Balance 100 / 100 Lab / Micro Data 06/07/24 03:05 Labs: Laboratory Results - last 24 hr 06/07/24 03:05: WBC 23.8 H, RBC 4.48, Hgb 12.4, Hct 35.8 L, MCV 79.9 L, MCH 27.7, MCHC 34.6, RDW Std Deviation 36.7, RDW Coeff of Kasie 13.0, Plt Count 303, MPV 10.0, Immature Gran % (Auto) 0.700, Neut % (Auto) 90.1 H, Lymph % (Auto) 5.9 L, [place] % (Auto) 2.9, Eos % (Auto) 0.1, Baso % (Auto) 0.3, Absolute Neuts (auto) 21.5 H, Absolute Lymphs (auto) 1.41, Nucleated RBC % 0, Differential Comment SCANNED, Blood Type A POSITIVE, Antibody Screen NEGATIVE ROS Constitutional Constitutional: Denies chills, fatigue, fever(s), poor appetite or weakness Eyes Eyes: Denies blurry vision, change in vision, seeing flashes or spots in vision ENT HEENT: Denies dizziness, headache(s), loss taste/smell or sore throat Cardiovascular Cardiovascular: Denies chest pain, dizziness, dyspnea, irregular heart rhythm, palpitations or rapid heart rate Respiratory/Chest Respiratory/Chest: Denies chest tightness, cough, dyspnea or breast pain Gastrointestinal Gastrointestinal: Denies abdominal pain, constipation or vomiting Genitourinary Genitourinary: Denies dysuria or flank pain Musculoskeletal Musculoskeletal: Denies difficulty walking, joint pain, limited range of motion or numbness Neurologic Neurologic: Denies abnormal movements, abnormal speech, dizziness, numbness, seizure-like activity or syncope Psychiatric Psychiatric: Denies anxiety, behavioral changes, change in appetite, confusion, depression or suicidal thoughts Physical Exam Const alert, oriented x3 and no apparent distress General Appearance: cooperative and comfortable Resp normal respiratory effort Cardio regular rate GI normal to inspection, nondistended, normoactive bowel sounds GI Narrative: uterus is firm below umbilicus Palpation: soft Back/Spine no CVA tenderness and thoraco-lumbar ROM normal Extremity normal to inspection, no clubbing, cyanosis or edema, no calf tenderness and no pedal edema Psych mental status grossly normal, thought process normal, cooperative, affect normal, speech normal, activity/motor behavior normal, denies homicidal ideation and denies suicidal ideation Assessment & Plan (1) Precipitate labor, with delivery: COMMENT: 2 hours (2) Active labor: COMMENT: KW Girl [facility] 39.0 (3) Anxiety associated with birthing process: COMMENT: 2 degree tear w/first del. States pain at sight, has always felt tight. Did vaginal stretching. Took 12 wks to be able to sit. Tearful with discussion. Declines medication (4) Obesity affecting : QUALIFIERS: Trimester: second trimester Obesity type affecting : unspecified obesity Qualified Code(s): O99.212 - Obesity complicating , second trimester COMMENT: BMI 31 encouraged healthy weight gain, nl hga1c 1 TM. (5) Supervision of high-risk : QUALIFIERS: Trimester: third trimester Qualified Code(s): O09.93 - Supervision of high risk , unspecified, third trimester COMMENT: PRR , VALE 06/07/24,girl BIRD Sanchez, Marquez history of 2nd degree tear that was oversewn. wants to try to get this fixed if tears again, wonders if we can leave some eges open if not bleeding. Plan to allow tearing of old scar naturally or if looks like going to tear in a different place, cut epis at old site . (6) : QUALIFIERS: Weeks of gestation: 39 weeks Qualified Code(s): Z 3A.39 - 39 weeks gestation of COMMENT: declines genetic & carrier testing PLAN: Plan s/p PPD # 1 1. routine post delivery care 2. breast feeding- support given 3. rh positive 4. rubella immune 5. plan to day for rest and recovery. dc to home tomorrow.
[2024-06-08 00:50] VITALS: BP 105/58; PULSE 68; RESP 16; TEMP 36.1; O2SAT 96
[2024-06-08 04:15] VITALS: BP 107/58; PULSE 79; RESP 16; TEMP 36.6; O2SAT 98
[2024-06-08 07:54] VITALS: BP 120/57; PULSE 80; RESP 16; TEMP 36.3; O2SAT 97
--- NOTE | 2024-06-08 08:04 | PCM.PN.OB ---
Subjective Subjective Patient doing well without complaints. Tolerating PO. Ambulating and voiding without difficulty. Feeding well. Denies chest pain, shortness of breath, calf pain/swelling, fevers, chills, lightheadedness. Objective Data Objective Data Vital Signs: Vital Signs Temp Pulse Resp BP Pulse Ox O2 Del Method 97.3 F L 80 16 120/57 L 97 Room Air 06/08/24 07:54 06/08/24 07:54 06/08/24 07:54 06/08/24 07:54 06/08/24 07:54 06/08/24 07:54 Oxygen Delivery Method Room Air Weight: 228 lb 8 oz Body Mass Index (BMI) 34.7 Intake & Output: Intake and Output for Last 24 Hours 06/06/24 06/07/24 06/08/24 23:59 23:59 23:59 Intake Total 250 / 250 Output Total 150 / 150 Balance 100 / 100 Lab / Micro Data 06/07/24 03:05 Physical Exam Const alert and oriented x3 HEENT normocephalic Eyes PERRL Neck full ROM Resp normal respiratory effort GI soft to palpation GI Narrative: FF below U Assessment & Plan (1) Precipitate labor, with delivery: COMMENT: 2 hours; 39 KW Girl Clif PLAN: Plan s/p PPD # 1 1. routine post delivery care 2. breast feeding- support given 3. rh positive 4. rubella immune 5. home today
== END 2024-06-08 10:00 | disposition home or self-care (01) | DRG 807 ==
PROVIDERS: Admitting Provider Advanced Practice Midwife; Visit Provider Advanced Practice Midwife
DX: O62.3 Precipitate labor (principal); Z37.0 Single live birth; O42.02 Full-term premature rupture of membranes, onset of labor within 24 hours of rupture; O99.214 Obesity complicating childbirth; O69.81X0 Labor and delivery complicated by cord around neck, without compression, not applicable or unspecified; O70.0 First degree perineal laceration during delivery; Z3A.39 39 weeks gestation of pregnancy; Z87.59 Personal history of other complications of pregnancy, childbirth and the puerperium
CPT/HCPCS: 59050; 85025; 86850; 86900; 86901; 99221; G0378